=== PATIENT | female | born 1970 | race Caucasian/White ===

== ENCOUNTER 2017-08-16 12:14 | Inpatient (IN) | payer OTHER ==
[~2017-08-16] VITALS: Ht 162.6 cm; Wt 82.0 kg
[2017-08-16] VITALS (8 sets, daily range): BP systolic 89–163; BP diastolic 68–119
[2017-08-16 13:43] LABS: BASOPHIL (%) 0.2 % (0-1); EOSINOPHIL (%) 0.7 % (0-5); EOSINOPHIL COUNT 0.1 K/uL (0-0.3); HEMATOCRIT 46.4 % (36.0-46.0); HEMOGLOBIN 15.7 G/DL (11.9-15.5); IMMATURE GRANULOCYTE (%) 0.3 % (0.0-0.7); LYMPHOCYTE (%) 21.1 % (15-42); LYMPHOCYTE COUNT 2.7 K/uL (1.0-2.8); MCH 29.7 PG (29.0-34.0); MCHC 33.8 G/DL (30.0-36.0); MCV 87.7 FL (83-99); MONOCYTE (%) 6.2 % (3-12); MONOCYTE COUNT 0.8 K/uL (0-0.8); NEUTROPHIL (%) 71.5 % (45-76); PLATELET COUNT 399 K/uL (156-360); RBC DIS.WIDTH-CV 11.9 % (11.8-14.6); RBC DIS.WIDTH-SD 38.8 % (39-53); RED BLOOD COUNT 5.29 M/uL (3.80-5.20); WHITE BLOOD COUNT 12.6 K/uL (4.1-10.2)
[2017-08-16 13:52] LABS: CHLORIDE 103 mEq/L (99-109); POTASSIUM 3.5 mEq/L (3.7-5.4); SODIUM 140 mEq/L (136-147)
[2017-08-16 13:53] LABS: GLUCOSE 124 mg/dL (70-99)
[2017-08-16 13:57] LABS: CREATININE 0.8 mg/dL (0.6-1.3); GFR ESTIMATE (CALCULATED) > 59 mL/min/
[2017-08-16 13:58] LABS: UREA NITROGEN (BUN) 10 mg/dL (9-23)
[2017-08-16 14:05] LABS: TROP-I INTERPRETATION POSITIVE
[2017-08-16 14:06] LABS: TROPONIN-I 0.97 ng/mL (0.0-0.30)
[2017-08-16 15:03] LABS: INTER. NORMALIZED RATIO 1.1
[2017-08-16 15:05] LABS: PTT 25.3 SEC (25-37)
[2017-08-16] MEDS ORDERED: ENDOCET 5-3251 EACH PO (16:37)
[2017-08-16] MEDS ORDERED: ASPIRIN EC325 MG PO (16:38)
[2017-08-16] MEDS ORDERED: VIORELE 28 DAY1 EACH PO (16:39)
[2017-08-16] MEDS ORDERED: AMLODIPINE BESY10 MG PO (16:39)
[2017-08-16] MEDS ORDERED: ADVIL200 MG PO (16:40)
[2017-08-16] MEDS ORDERED: TUMS500 MG PO (16:42)
[2017-08-16 21:26] LABS: TROP-I INTERPRETATION POSITIVE
[2017-08-17] VITALS (18 sets, daily range): BP systolic 96–144; BP diastolic 76–122
[2017-08-17 05:00] LABS: TROP-I INTERPRETATION INDETERMINATE
[2017-08-17 06:09] LABS: CHLORIDE 102 MEQ/L (99-109); CREATININE 0.6 MG/DL (0.6-1.3); GFR ESTIMATE (CALCULATED) > 59 mL/min/; GLUCOSE 141 mg/dL (70-99); POTASSIUM 3.8 MEQ/L (3.7-5.4); SODIUM 137 MEQ/L (136-147); UREA NITROGEN (BUN) 10 mg/dL (9-23)
[2017-08-17 06:14] LABS: BASOPHIL (%) 0.3 % (0-1); EOSINOPHIL (%) 0.4 % (0-5); EOSINOPHIL COUNT 0.1 K/uL (0-0.3); HEMATOCRIT 40.3 % (36.0-46.0); IMMATURE GRANULOCYTE (%) 0.3 % (0.0-0.7); LYMPHOCYTE (%) 34.3 % (15-42); LYMPHOCYTE COUNT 4.1 K/uL (1.0-2.8); MCH 29.6 PG (29.0-34.0); MCHC 33.3 G/DL (30.0-36.0); MONOCYTE (%) 6.2 % (3-12); MONOCYTE COUNT 0.7 K/uL (0-0.8); NEUTROPHIL (%) 58.5 % (45-76); PLATELET COUNT 374 K/uL (156-360); RBC DIS.WIDTH-CV 12.2 % (11.8-14.6); RBC DIS.WIDTH-SD 40.3 % (39-53); RED BLOOD COUNT 4.53 M/uL (3.80-5.20); WHITE BLOOD COUNT 11.9 K/uL (4.1-10.2)
[2017-08-17 06:15] LABS: HEMOGLOBIN 13.4 G/DL (11.9-15.5)
[2017-08-17 09:16] LABS: TROP-I INTERPRETATION INDETERMINATE; TROPONIN-I 0.36 ng/mL (0.0-0.30)
[2017-08-18] VITALS (7 sets, daily range): BP systolic 118–133; BP diastolic 83–92
[2017-08-18 06:04] LABS: BASOPHIL (%) 0.3 % (0-1); EOSINOPHIL (%) 3.2 % (0-5); EOSINOPHIL COUNT 0.3 K/uL (0-0.3); HEMATOCRIT 42.4 % (36.0-46.0); IMMATURE GRANULOCYTE (%) 0.4 % (0.0-0.7); LYMPHOCYTE COUNT 4.4 K/uL (1.0-2.8); MCV 87.8 FL (83-99); MONOCYTE (%) 6.2 % (3-12); MONOCYTE COUNT 0.7 K/uL (0-0.8); NEUTROPHIL (%) 47.9 % (45-76); NEUTROPHIL COUNT 5.1 K/uL (1.8-6.4); PLATELET COUNT 327 K/uL (156-360); RBC DIS.WIDTH-SD 38.5 % (39-53); RED BLOOD COUNT 4.83 M/uL (3.80-5.20); WHITE BLOOD COUNT 10.6 K/uL (4.1-10.2)
[2017-08-18 06:24] LABS: TROP-I INTERPRETATION NEGATIVE; TROPONIN-I 0.16 ng/mL (0.0-0.30)
[2017-08-18 06:44] LABS: CHLORIDE 108 MEQ/L (99-109); CREATININE 0.7 MG/DL (0.6-1.3); GFR ESTIMATE (CALCULATED) > 59 mL/min/; GLUCOSE 129 mg/dL (70-99); PHOSPHORUS 2.8 mg/dL (2.5-4.9); SODIUM 138 MEQ/L (136-147); UREA NITROGEN (BUN) 12 mg/dL (9-23)
[2017-08-18] MEDS ORDERED: XARELTO15 MG PO (12:50)
== END 2017-08-18 19:09 | disposition home or self-care (01) | DRG 300 ==
LOC: EME 12:14 → 4WEST 15:33 → EDOF 15:33 → ENRESERV 15:36 → 4WEST 16:52 → ENRESERV 08-17 14:05 → 5SOUTH 08-18 06:59
PROVIDERS: Emergency Medicine; Internal Medicine Critical Care Medicine; Specialist; Surgery
DX: T81.72XA Complication of vein following a procedure, not elsewhere classified, initial encounter (principal); J95.89 Other postprocedural complications and disorders of respiratory system, not elsewhere classified; I82.441 Acute embolism and thrombosis of right tibial vein; I26.99 Other pulmonary embolism without acute cor pulmonale; I10 Essential (primary) hypertension; E87.6 Hypokalemia; R00.0 Tachycardia, unspecified; Y82.8 Other medical devices associated with adverse incidents; Z91.19 Patient's noncompliance with other medical treatment and regimen; Y92.9 Unspecified place or not applicable; Z79.01 Long term (current) use of anticoagulants; Z98.890 Other specified postprocedural states; Z79.3 Long term (current) use of hormonal contraceptives; Y83.8 Other surgical procedures as the cause of abnormal reaction of the patient, or of later complication, without mention of misadventure at the time of the procedure; D72.829 Elevated white blood cell count, unspecified
CPT/HCPCS: 71046; 71275; 80048; 83605; 83735; 84100; 84484; 85025; 85027; 85610; 85730; 87040; 87641; 93005; 93306; 93970; 99281; 99285; J2270